=== PATIENT | female | born 1985 | race Caucasian/White ===

== ENCOUNTER 2016-10-03 04:09 | Emergency (ER) | payer SELFPAY ==
[~2016-10-03] VITALS: Ht 170.2 cm; Wt 140.0 kg
[~2016-10-03 04:09] MED LIST: BUSPAR30 MG PO; CLONAZEPAM2 MG PO; KEFLEX500 MG PO; KLONOPIN1 M1 PO; METHADONE HCL40 MG; METHADONE5 MG; Motrin PO; PROCARDIA10 MG PO; ZOLOFT20 MG/ML PO
[2016-10-03 05:20] VITALS: BP 141/100
== END 2016-10-03 05:57 | disposition left against medical advice (07) ==
LOC: EME 04:09
DX: S02.32XA Fracture of orbital floor, left side, initial encounter for closed fracture (principal); S02.2XXA Fracture of nasal bones, initial encounter for closed fracture; S01.112A Laceration without foreign body of left eyelid and periocular area, initial encounter; S00.83XA Contusion of other part of head, initial encounter; Y04.2XXA Assault by strike against or bumped into by another person, initial encounter; I25.2 Old myocardial infarction; G40.909 Epilepsy, unspecified, not intractable, without status epilepticus; F17.200 Nicotine dependence, unspecified, uncomplicated
CPT/HCPCS: 70486; 99281; 99284